=== PATIENT | female | born 1965 | race Caucasian/White ===

== ENCOUNTER → 2017-09-25 17:32 | Outpatient (CLI) | payer OTHER, SELFPAY | PROVIDERS: Family Provider Family Medicine Geriatric Medicine; PCP Family Medicine Geriatric Medicine; Visit Provider Family Medicine Geriatric Medicine | DX: R69 Illness, unspecified (principal) | CPT/HCPCS: 87633 ==

== ENCOUNTER → 2017-11-01 11:12 | Outpatient (CLI) | payer OTHER, SELFPAY ==
[2017-11-01 12:04] LABS: Absolute Lymphocyte Count 1.87 X10^3/ul (0.83-4.51); Absolute Neutrophil Count 3.8 X10^3/uL (2.0-7.7); Basophil# 0.04 X10^3/uL; Basophil% 0.6 % (0-1); Eosinophil# 0.19 X10^3/uL; Eosinophils% 2.9 % (0-5); Hematocrit 42.9 % (37-47); Hemoglobin 14.3 g/dl (12.0-15.0); Lymphocyte # 1.87 X10^3/ul (4.0); Lymphocyte % 28.7 % (19-41); Mean Corp Hgb Conc 33.3 g/gl (32-36); Mean Corpuscular Hgb 30.4 pg (27.0-32.0); Mean Corpuscular Volume 91.3 fL (81-99); Mean Platelet Vol. 9.6 fl (6.2-12.0); Monocyte# 0.57 X10^3/uL; Monocyte% 8.8 % (0-10); Neutrophil # 3.83 X10^3/uL (2.7-7.7); Neutrophil % 58.8 % (47-70); Platelet Count 297 K/mm3 (150-450); RBC Distribution Width CV 13.8 % (11.6-14.6); RBC Distribution Width SD 45.4 fl (35.1-43.9); White Blood Count 6.5 K/mm3 (4.4-11.0)
[2017-11-01 12:06] LABS: POSITIVE COUNT NO; POSITIVE DIFFERENTIAL NO; POSITIVE MORPHOLOGY NO
[2017-11-01 12:48] LABS: Anion Gap 5 (5-15); BUN 17 mg/dL (7-18); BUN/Creat Ratio 24.9 RATIO (10-20); Calcium,Total 9.4 mg/dL (8.5-10.1); Chloride 106 mmol/L (98-107); Creatinine, Serum 0.68 mg/dL (0.55-1.02); EST Glomerular Filtration Rate 95 mL/min (>60); Est Glom Filt Rate - Afr Amer 115 mL/min (>60); Glucose 80 mg/dL (74-106); Potassium 4.5 mmol/L (3.5-5.1); Sodium Level 140 mmol/L (136-145)
== END ==
PROVIDERS: Family Provider Family Medicine Geriatric Medicine; PCP Family Medicine Geriatric Medicine; Visit Provider Internal Medicine Cardiovascular Disease
DX: I10 Essential (primary) hypertension (principal); D69.2 Other nonthrombocytopenic purpura
CPT/HCPCS: 36415; 80048; 85025

== ENCOUNTER → 2017-11-11 14:17 | Outpatient (CLI) | payer OTHER, SELFPAY ==
--- NOTE | 2017-11-11 14:19 | CT_ITS ---
STUDY: CTA CHEST REASON FOR EXAM: Female, 52 years old. Thoracic aortic aneurysm RADIATION DOSAGE (If Supplied By Facility): CTDIvol = ( 14.99 ) mGy, DLP = ( 602.93 ) mGycm TECHNIQUE: The examination was performed with the intravenous administration of 100 ml of Isovue 300 contrast material. Post-processing of the angiographic images was performed, with multiplanar reformation and 3D reconstruction. Individualized dose optimization techniques were used for this CT. COMPARISON: None. FINDINGS: Normal enhancement of the main pulmonary artery and right and left pulmonary arteries. Normal enhancement of the bilateral peripheral pulmonary arteries. There is no demonstrated pulmonary embolism. A 4.9 cm aneurysm of the ascending thoracic aorta is noted without evidence of acute complication. Calcified aortic plaques are present. There is no demonstrated aortic dissection. Normal heart and pericardium. Normal mediastinum. Normal hilar regions. Normal visualized trachea and bronchi. An azygos lobe is incidentally noted. Mild emphysema. Normal pleura. Normal chest wall structures. There are degenerative changes of thoracic spine. Indeterminate 2.5 x 1.8 cm left adrenal nodule. Consider [address] or MRI follow-up. CT/Chest WITH Contrast IMPRESSION: A 4.9 cm aneurysm of the ascending thoracic aorta is noted without evidence of acute complication. No acute pulmonary findings. Indeterminate 2.5 x 1.8 cm left adrenal nodule. Consider [address] or MRI follow-up. Electronically Signed: Woo Biswas MD at 4:38 EDT Tel , Service support ,
== END ==
LOC: CT 14:18
PROVIDERS: Family Provider Family Medicine Geriatric Medicine; PCP Family Medicine Geriatric Medicine; Visit Provider Internal Medicine Cardiovascular Disease
DX: I77.810 Thoracic aortic ectasia (principal)
CPT/HCPCS: 71260; Q9967

== ENCOUNTER → 2018-03-27 16:17 | Outpatient (CLI) | payer OTHER, SELFPAY ==
[2018-03-27 17:27] LABS: Absolute Lymphocyte Count 1.88 X10^3/ul (0.83-4.51); Absolute Neutrophil Count 4.1 X10^3/uL (2.0-7.7); Basophil# 0.03 X10^3/uL; Basophil% 0.5 % (0-1); Eosinophil# 0.11 X10^3/uL; Eosinophils% 1.7 % (0-5); Hematocrit 41.1 % (37-47); Hemoglobin 13.6 g/dl (12.0-15.0); Lymphocyte # 1.88 X10^3/ul (4.0); Lymphocyte % 28.7 % (19-41); Mean Corp Hgb Conc 33.1 g/gl (32-36); Mean Corpuscular Hgb 30.1 pg (27.0-32.0); Mean Corpuscular Volume 90.9 fL (81-99); Mean Platelet Vol. 9.6 fl (6.2-12.0); Monocyte% 6.1 % (0-10); Neutrophil # 4.13 X10^3/uL (2.7-7.7); Platelet Count 317 K/mm3 (150-450); RBC Distribution Width CV 13.6 % (11.6-14.6); RBC Distribution Width SD 45.1 fl (35.1-43.9); Red Blood Count 4.52 M/mm3 (4.2-5.4); White Blood Count 6.6 K/mm3 (4.4-11.0)
[2018-03-27 17:51] LABS: ALB/GLOB Ratio 0.9 RATIO (0.9-2.4); AST(SGOT) 16 U/L (15-37); Alanine Aminotransfer ALT/SGPT 24 U/L (13-56); Albumin, Serum 3.4 g/dL (3.2-5.0); Alkaline Phosphatase 103 U/L (45-117); Anion Gap 12 (5-15); BUN 16 mg/dL (7-18); BUN/Creat Ratio 21.2 RATIO (10-20); Calcium,Total 8.6 mg/dL (8.5-10.1); Chloride 107 mmol/L (98-107); Creatinine, Serum 0.76 mg/dL (0.55-1.02); EST Glomerular Filtration Rate 85 mL/min (>60); Est Glom Filt Rate - Afr Amer 102 mL/min (>60); Globulin 3.8 g/dL (2.2-4.2); Glucose 151 mg/dL (74-106); Potassium 3.7 mmol/L (3.5-5.1); Protein, Total 7.2 g/dL (6.4-8.2); Sodium Level 144 mmol/L (136-145); Thyroid Stim Hormone (TSH) 0.91 uIU/mL (0.358-3.74)
[2018-03-27 18:13] LABS: POSITIVE COUNT NO; POSITIVE DIFFERENTIAL NO; POSITIVE MORPHOLOGY NO
[2018-03-28 08:33] LABS: Vitamin D,25 Hydroxy 22.2 ng/mL (29.95-100.01)
[2018-03-28 15:28] LABS: Hemoglobin A1c 5.8 % (4.2-6.3)
[2018-03-29 08:41] LABS: Hep C Antibodies 0.1 s/co ratio (0.0-0.9)
== END ==
PROVIDERS: Family Provider Family Medicine Geriatric Medicine; PCP Family Medicine Geriatric Medicine; Visit Provider Family Medicine Geriatric Medicine
DX: R53.83 Other fatigue (principal); E55.9 Vitamin D deficiency, unspecified; Z13.89 Encounter for screening for other disorder; M25.569 Pain in unspecified knee; E16.2 Hypoglycemia, unspecified
CPT/HCPCS: 36415; 73564; 80053; 82306; 83036; 84443; 85025; 86803

== ENCOUNTER 2018-05-15 14:00 | Outpatient (RCR) | payer OTHER, SELFPAY ==
--- NOTE | 2018-04-04 15:37 | HP.PTEVAL_ITS ---
Patient's Visit Information PRISCILLA MEADE is a 53 year old F referred to Physical Therapy by Doron Padgett with a diagnosis of OA OF THE LEFT KNEE. Date of Evaluation: 04/04/18 Physical Therapist: Nathalia Carbone - Visit Plan Frequency: 2-3x /Week Duration: 4-6 Weeks Plan: AQUATIC THERAPY FOR PAIN RELEIF, POSTURE CORRECTION/STRENGTHENING, INSTRUCTION IN APPROPRIATE BODY MECHANICS AND ACTIVITY MODIFICATIONS. DLS WITH A NEUTRAL SPINE TOLERATED. ANAHY LE ROM, STRETCHING AND STRENGTHENING. HEP INSTRUCTION. FOCUS ON LEFT KNEE. 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 Disability: NO. Present symptoms: THE WHOLE LEFT KNEE. PATIENT REPORTS NUMBNESS/TINGLING IN THE LEFT KNEE AND ALSO ABOVE AND BELOW A LITTLE BIT. INCREASED LBP LATELY. Present since : ABOUT 6 MONTHS. Pain Scale: WORST 6/10, LEAST 2/10. Currently: 2/10. Commenced as a result of: OA. Symptoms at onset: SAME. Worse: STEPS, WALKING, SLEEPING, CLUTCH, WALKING UP AND DOWN STEEP DRIVEWAYS, GETTING IN/OUT OF TRUCK AND PROLONGED STANDING. Better: IBUPROFEN, ARTHRITIS MEDICINE, WARM BATH, SITTING WITH LEG UP. Disturbed sleep: YES. Previous history/Previous treatment: OVER THE LAST 6 MONTHS SHE HAS HAD 2-[address] PADGETT AND RECEIVED A CORTISONE INJECTION THAT HELPED FOR ABOUT 2 MONTHS. NO PRIOR PT. NO LEFT KNEE SURGERY. NO SPECIALIST CONSULTS. Gait: PATIENT REPORTS SHE IS WALKING VERY SLOW AND LIMPING ON THE LLE. NO AD'S. NO FALLS. KNEE DOES GIVE OUT ON HER THOUGH AND IT IS GETTING WORSE. Accidents: NO. Unexplained weight loss: NO. Imaging: LEFT KNEE X-RAY DONE RECENTLY BUT PATIENT REPORTS SHE DOES NOT KNOW THE RESULTS. THIS PT ABLE TO FIND RESULTS IN EMR: FINDINGS: Normal visualized distal femur. Normal visualized proximal tibia and. fibula. Normal proximal tibiofibular articulation. Normal medial femorotibial compartment. Mild degenerative spurring at the. lateral femorotibial compartment. Normal patellofemoral articulation. Soft tissue structures are unremarkable. PMH: MITRAL VALVE PROLAPSE. OA IN HANDS AND HIPS. FOOT PROBLEMS - PODIATRY MALAIKA'T PENDING. 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 - Objective Other Observations: INDEP GAIT INTO PT WITHOUT ANY ASSISTIVE DEVICES WITH DECREASED CADANCE AND LIMPING ON RIGHT LE. HER LEFT KNEE HAS MODERATE SWELLING COMPARED TO RIGHT. ANAHY PES PLANTIS AND ANAHY GENU VALGUS LEFT > RIGHT. Motor deficit: RIGHT LE 5/5 WITH MMT. LEFT HIP FLEX 4/5, KNEE EXT 4-/5, KNEE FLEX 3- /5, ANKLE 5/5, EHL 5/5. Sensory deficit: ANAHY LE LIGHT TOUCH SENSATION IS INTACT AND SYMMETRICAL. ROM deficit: RIGHT KNEE ROM IN SUPINE WITH A HEEL SLIDE = FULL EXT TO 135 DEG, LEFT KNEE FULL EXT TO 110 DEG FLEX. Dural Signs: NEGATIVE ANAHY LE DURAL SIGNS. Lumbar mvmt loss: flex - NIL. ext - MOD. R SG - MIN. L SG - MIN. PATIENT DENIES INCREASED PAIN WITH LUMBAR ROM TESTING. Core strength: POOR. Palpation: TENDERNESS ALONG MEDIAL AND LATERAL LEFT KNEE JOINT LINES. NO ACUTE LUMBAR OR SACRAL TENDERNESS - Goals Goal 1:: DECREASE C/O LEFT KNEE PAIN. Goal Time Frame: 4-6 Weeks Goal 2:: IMPROVE FUNCTIONAL ROM OF LEFT KNEE. Goal Time Frame: 4-6 Weeks Goal 3:: IMPROVE FUNCTIONAL STRENGTH OF LEFT KNEE Goal Time Frame: 4-6 Weeks Goal 4:: IMPROVE STANDING, WALKING, WORK, SLEEP AND RECREATIONAL FUNCTION Goal Time Frame: 4-6 Weeks Goal 5:: INDEP HEP Goal Time Frame: 4-6 Weeks - Rehabilitation Potential Rehabilitation Potential: Fair - Anticipated Interventions Patient/Client Instruction: Educate patient on: Condition, Plan of Care, Risk Factors, Benefits of Fitness Program For the Purpose of:: To improve self management Therapeutic Exercise to Include: Strength training, Body mechanics, Postural training, Flexibilty training, In an aquatic setting, Passive ROM, Active ROM , Dynamic Lumbar Stabilization Comment: FOCUS ON LEFT KNEE. For the Purpose of:: To decrease pain, To decrease swelling/inflammation, To increase ROM, To improve muscle performance and motor function, To increase tolerance to activity/condition/position, To improve ability of physical actions for home/community/work/leisure, To improve gait and locomotor functions Thank you for the opportunity to evaluate your patient. For Medicare and Medicare HMO plans, please review the plan of care and approve it. It will need to be FAXED BACK to us at [phone] for Medicare purposes. Please let me know if there are questions or concerns regarding this plan of care. Physician Signature: Date:
--- NOTE | 2018-06-16 12:13 | HP.PT.NRP ---
HP - Discharge Summary (1) - Patient Information PRISCILLA MEADE was seen in my office for initial evaluation on 04/04/18. The following Plan of Care was established for this patient: Initial Frequency: 2-3x /Week Initial Duration: 4-6 Weeks - Anticipated Interventions Patient/Client Instruction: Educate patient on: Condition, Plan of Care, Risk Factors, Benefits of Fitness Program For the Purpose of:: To improve self management Therapeutic Exercise to Include: Strength training, Body mechanics, Postural training, Flexibilty training, In an aquatic setting, Passive ROM, Active ROM, Dynamic Lumbar Stabilization For the Purpose of:: To decrease pain, To decrease swelling/inflammation, To increase ROM, To improve muscle performance and motor function, To increase tolerance to activity/condition/position, To improve ability of physical actions for home/community/work/leisure, To improve gait and locomotor functions This patient was last seen in our office 05/15/18. Pertinent comments regarding their Physical therapy will appear below: This patient has not returned to Physical Therapy and is appropriate to return to MD for further follow-up as needed. At this point I will be discontinuing this patient from physical therapy. I would be happy to see this patient again in the future if found appropriate by the physician. Thank you! Nathalia Carbone
== END 2018-05-15 19:00 | disposition home or self-care (01) ==
LOC: PT 14:00
PROVIDERS: Family Provider Family Medicine Geriatric Medicine; PCP Family Medicine Geriatric Medicine; Visit Provider Family Medicine Geriatric Medicine
DX: M17.9 Osteoarthritis of knee, unspecified (principal)
CPT/HCPCS: 97110; 97113; 97162; 97530

== ENCOUNTER → 2019-01-08 17:15 | Outpatient (CLI) | payer OTHER, SELFPAY ==
[2018-11-06 09:49] VITALS: BMI 33.4
--- NOTE | 2019-01-08 17:21 | RAD_ITS ---
STUDY: X-RAY - PELVIS AND BILATERAL HIPS REASON FOR EXAM: Female, 54 years old. Pain TECHNIQUE: AP view of the pelvis.? 2 views of the right hip, and 2 views of the left hip were obtained. COMPARISON: None. FINDINGS: There is a non-specific bowel gas pattern. Normal visualized soft tissue structures. Normal bilateral iliac wings, sacroiliac joints and visualized sacrum. Normal bilateral superior and inferior pubic rami. Normal pubic symphysis. Normal bilateral ischial tuberosities. Normal visualized right femoral head. Normal right acetabulum. Normal right hip joint. Normal visualized left femoral head. Normal left acetabulum. Normal left hip joint. RAD/Hips B/L min 2 views w/ Pelvis IMPRESSION: Normal x-ray examination of the pelvis and bilateral hips. Electronically Signed: Ricky Craven DO at 18:37 EDT Tel [phone], Service support ,
--- NOTE | 2019-01-08 17:21 | RAD_ITS ---
STUDY: X-RAY - LUMBAR SPINE REASON FOR EXAM: Female, 54 years old. Pain TECHNIQUE: 3 view(s) of the lumbar spine were obtained. COMPARISON: None FINDINGS: Exaggerated lumbar lordosis. There is no substantial scoliosis. There is a grade 1 spondylolisthesis at L4-5. Normal vertebral bodies and endplates. Normal disc space heights. The soft tissue structures are unremarkable. RAD/Lumbar Spine 2 or 3 Views IMPRESSION: Grade 1 spondylolisthesis at L4-5.. Electronically Signed: Ricky Craven DO at 18:36 EDT Tel [phone], Service support ,
== END ==
LOC: RAD.FUTURE 17:19 → RAD 17:24
PROVIDERS: Family Provider Family Medicine Geriatric Medicine; PCP Family Medicine Geriatric Medicine; Referring Provider Family Medicine Geriatric Medicine; Visit Provider Family Medicine Geriatric Medicine
DX: M16.9 Osteoarthritis of hip, unspecified (principal); M54.5 Low back pain
CPT/HCPCS: 72100; 73521

== ENCOUNTER → 2019-12-21 | Outpatient (CLI) | payer OTHER, SELFPAY ==
[2019-11-05 10:30] VITALS: BMI 33.2
--- NOTE | 2019-12-21 12:52 | ECHOD_ITS ---
Reason For Study: DYSPNEA/SOB Procedure This was a 2D Doppler, Color Flow transthoracic echocardiogram. Exam performed in department. Left Ventricle Normal LV size. Left ventricular systolic function is normal. The estimated ejection fraction is 65 %. Stage 1 diastolic dysfunction. No regional wall motion abnormalities noted. Right Ventricle Normal RV size. Normal systolic function. Atria Normal left atrium. Normal right atrium. Tricuspid Valve Mild (1+) tricuspid valve insufficiency. Pulmonary artery systolic pressure is 29 mmHg. Aortic Valve Trisinus/trileaflet aortic valve. Moderate focal aortic valve calcification. Severe aortic stenosis. Peak aortic valve gradient 66 mmHg. Mean aortic valve gradient 41 mmHg. Calculated aortic valve area (continuity equation) is 0.8 cm2. Pulmonic Valve Normal pulmonic valve. Great Vessels Mild to moderately dilated aortic root. The pulmonary artery is normal size. Normal inferior vena cava. Pericardium/Pleural No pericardial effusion. MMode/2D Measurements & Calculations LVIDd: 4.9 cm IVSd: 0.98 cm LVOT diam: 2.0 cm LVIDs: 2.6 cm LVPWd: 1.1 cm LVOT area: 3.0 cm2 RVDd: 2.6 cm FS: 46.9 % Ao root diam: 4.5 cm LAV(MOD-bp): 37.3 ml LA A4 area: 12.8 cm2 LAV(MOD-bp) Indexed: 18.4 ml/m2 LAV(MOD-sp2): 37.2 ml LAV(MOD-sp4): 33.2 ml LA dimension(2D): 3.4 cm RA A4 area: 13.6 cm2 Time Measurements MV dec time: 0.25 sec Doppler Measurements & Calculations MV E max uli: 79.1 cm/sec Med Peak E' Uli: 4.7 cm/sec Ao V2 max: 407.7 cm/sec MV A max uli: 103.4 cm/sec E/E' med: 16.9 Ao max P.6 mmHg MV E/A: 0.77 Ao V2 mean: 308.2 cm/sec Ao mean P.0 mmHg Ao V2 VTI: 85.2 cm KARAN(I,D): 0.79 cm2 KARAN(V,D): 0.80 cm2 LV V1 max: 107.8 cm/sec SV(LVOT): 67.6 ml PA V2 max: 85.0 cm/sec LV V1 max P.6 mmHg LV V1 mean P.5 mmHg LV V1 mean: 75.3 cm/sec LV V1 VTI: 22.2 cm TR max uli: 255.4 cm/sec TR max P.1 mmHg Interpretation Summary Normal LV size. Left ventricular systolic function is normal. The estimated ejection fraction is 65 %. Stage 1 diastolic dysfunction. Mild to moderately dilated aortic root. Moderate focal aortic valve calcification. Severe aortic stenosis. Mean aortic valve gradient 41 mmHg. Calculated aortic valve area (continuity equation) is 0.8 cm2. Ordering Physician: Rajesh Rizvi Referring Physician: Doron Padgett Chi Performed By: Gricelda Spaulding RDCS, RVT
== END | disposition home or self-care (01) ==
LOC: CVS 12:52
PROVIDERS: PCP Family Medicine Geriatric Medicine; Referring Provider Internal Medicine Cardiovascular Disease; Visit Provider Internal Medicine Cardiovascular Disease
DX: R06.02 Shortness of breath (principal); Q23.1 Congenital insufficiency of aortic valve; R06.00 Dyspnea, unspecified
CPT/HCPCS: 93306

== ENCOUNTER 2020-01-01 06:55 | Day surgery (SDC) | payer OTHER, SELFPAY ==
[2019-11-05 10:30] VITALS: BMI 33.2
--- NOTE | 2019-12-28 08:44 | RAD_ITS ---
STUDY: X-RAY CHEST REASON FOR EXAM: Female, 54 years old. pre heart cath -- palpitations, hypertension -- aortic valve stenosis TECHNIQUE: Frontal and lateral views of the chest. COMPARISON: 11/11/2017 FINDINGS: The lungs are clear and expanded. There is no demonstrated pleural abnormality. Normal size heart. Normal mediastinum and nicola. Normal visualized pulmonary arteries. Normal visualized aortic arch and descending thoracic aorta. There is a levoscoliosis of the thoracic spine. There is degenerative osteoarthritis of the bilateral shoulders. There is no demonstrated abnormality of the visualized soft tissue structures of the upper abdomen. RAD/Chest PA and Lateral IMPRESSION: Degenerative changes, as described above. No demonstrated acute cardiopulmonary process. Electronically Signed: April Solomon, at 15:38 EDT Tel , Service support ,
--- NOTE | 2019-12-30 10:55 | PCM.HP.BLA ---
History and Physical Date of Admission: 01/01/20 Details: PRISCILLA MEADE, is a 54 F who presents to the skilled laborer today for a heart catheterization. She is a lady with a history of hypertension, hyperlipidemia, and palpitations. She says she only has occasional palpitations but she has not had any chest pain no shortness breath no paroxysmal nocturnal dyspnea or pedal edema she has had no presyncope or syncope. She tells me that she has had some palpitations recently and occasional dizziness. She has been compliant with her beta-ivelisse as well as her antidepressant. She has been compliant with all her medications. She does not know the etiology of the above. Intake Vital Signs: See EMR Intake Visit Reasons: [facility] Allergies No Known Allergies Allergy (Verified 11/05/19 10:36) Medications See EMR Ejection fraction %: 65 to 70 [facility] Medical History Bicuspid aortic valve (Chronic) Nonrheumatic aortic (valve) stenosis with insufficiency (Chronic) Dilated aortic root (Chronic) Essential (primary) hypertension (Chronic) Paroxysmal atrial tachycardia (Chronic) Hyperlipidemia (Chronic) Nicotine dependence (Chronic) Obesity (Chronic) Family History Mother Hypertension Father Hypertension Social History (Updated 11/05/19 @ 11:[address] Rajesh Rizvi MD) Smoking Status: Current every day smoker tobacco type: cigarettes ROS Const Const: Positive for other (continues to smoke 0.5 ppd); negative for fatigue, weakness, headache(s), frequent falls, difficulty sleeping or excessive sweating Eyes Eyes: Negative for loss of peripheral vision, transient loss of vision, blurry vision, double vision or tunnel vision ENT ENT: Negative for headache(s), dizziness, Nosebleed/epistaxis or balance problems Cardio Chest Pain: No Palpitations: Yes (Becomes lightheaded and SOB) feels like its: fast, skipping, thumping, pounding Edema: None Muscle aches with walking: None Resp Respiratory: Positive for SOB with activity. Negative for SOB at rest, SOB orthopnea\SOB lying down, Cough or paroxysmal nocturnal dyspnea GI GI: Negative nausea, vomiting, heartburn or black,tarry stools : Negative for hematuria Musc Musc: Negative for muscle aches/ myalgia, muscle weakness, joint pain or balance problems Skin Skin: Negative non-healing lesions, rash or unusual bruising Neuro Neuro: Negative for dizziness, lightheadedness, near syncope, syncope, orthostatic symptoms, frequent falls, headache(s), weakness, blurry vision, double vision or lack of coordination Jayme Hematologic/Lymphatic: Negative for easy bleeding or easy bruising Endo Endo: Negative for fatigue, excessive sweating or increased thirst/drinking Psych Psych: Negative for anxiety or depression Allergy Allergy/Immunology: Negative for hives, Negative for rash Cardiology Exam Const Appearance: cooperative, healthy appearing, no acute distress, well developed and well groomed Nutritional Appearance: average body habitus and well nourished Orientation: alert, awake and oriented x3 Head Head: normal to inspection, normocephalic and atraumatic Ears: hearing grossly normal bilaterally and external ears normal Nose: external nose normal, nares normal, nasal mucous membranes and turbinates normal, septum normal, no nasal discharge Face and Sinus: face symmetric Mouth: oral mucosae normal, tongue normal, oropharynx normal and moist mucous membranes Teeth and gingiva: dentition normal Throat: posterior oropharynx normal, tonsils normal and uvula midline Eyes General: appearance normal, both eyes and all related structures Eyelids: eyelids normal Conjunctivae: conjunctivae normal Pupils: PERRL, normal by confrontation and accommodation normal EOM: EOM intact bilaterally Neck Neck: normal visual inspection, trachea midline and no JVD JVD: +5 Carotids: normal carotid upstroke and bounding pulses Chest Chest inspection: normal inspection of the chest, symmetric chest movement and normal respiratory effort Auscultation: Bilateral: Clear to Auscultation Cardio Palpation: normal PMI Rate: regular rate Rhythm: regular rhythm Heart sounds: S1 normal, S2 normal and normal, physiologic split S2; negative rub, gallop or murmur Murmur: Grade 2/6, soft and early systolic GI GI: normal to inspection, soft, no hepatosplenomegaly and bowel sounds present Neuro General: alert, awake, oriented x3, gait normal, moves all extremities and no focal sensory deficit Skin Skin: no rashes or lesions noted Extremities Pulses: Normal: Right Femoral Pulse, Left Femoral Pulse, Right Dorsalis Pedis Pulse, Left Dorsalis Pedis Pulse, Right Posterior Tibial Pulse, Left Posterior Tibial Pulse, Right Radial Pulse, Left Radial Pulse Lower Extremity Edema: None: Bilateral Musculoskel Musculoskeletal: No joint tenderness Psych Psychological: normal affect Assessment & Plan 1. Shortness of breath R06.02 Plan Patient expressed shortness of breath at office appointment on 11/05/2019. She underwent an echocardiogram on 12/21/2019 that showed ejection fraction of 65%, stage I diastolic dysfunction, normal LV size, and severe aortic stenosis with a peak aortic valve gradient of 66 mmHg, a mean aortic valve gradient of 41 mmHg, and a calculated aortic valve area of 0.8 cm?. She will proceed with left heart catheterization to further assess coronary artery anatomy to guide valve treatment. Based on results, further recommendation will be made. 2. Bicuspid aortic valve Q23.1 Plan Patient proceeded with echocardiogram on 12/21/2019 with results noted above. She will proceed with heart catheterization to further guide treatment. 3. Essential (primary) hypertension I10 Plan Her blood pressure has been under good control on the current medical therapy. She will continue current medical therapy. Thank you for allowing us to participate in the patients plan of care, if you have any questions please do not hesitate to call. This note was generated using a voice recognition system and there may be incorrect words, spelling or punctuation that were not noted when reviewing the office note prior to saving.
[2019-12-30 15:00] LABS: Hematocrit 40.8 % (37-47); Hemoglobin 13.7 g/dL (12.0-15.0); Mean Corp Hgb Conc 33.6 g/dL (32-36); Mean Corpuscular Hgb 30.2 pg (27.0-32.0); Mean Corpuscular Volume 89.9 fL (81-99); RBC Distribution Width CV 13.2 % (11.6-14.6); RBC Distribution Width SD 43.1 fl (35.1-43.9); Red Blood Count 4.54 M/mm3 (4.2-5.4); White Blood Count 6.8 K/mm3 (4.4-11.0)
[2019-12-30 15:01] LABS: Basophil% 0.9 % (0-1); Eosinophils% 2.4 % (0-5); Lymphocyte % 25.3 % (19-41); Mean Platelet Vol. 9.2 fl (6.2-12.0); Monocyte% 7.4 % (0-10); Neutrophil % 63.7 % (47-70); Platelet Count 267 K/mm3 (150-450)
[2019-12-30 15:02] LABS: Absolute Lymphocyte Count 1.71 X10^3/uL (0.83-4.51); Absolute Neutrophil Count 4.3 X10^3/uL (2.0-7.7); Basophil# 0.06 X10^3/uL; Eosinophil# 0.16 X10^3/uL; Lymphocyte # 1.71 X10^3/ul (4.0); Neutrophil # 4.32 X10^3/uL (2.7-7.7)
[2019-12-30 15:03] LABS: NRBC Flagged by Analyzer 0 % (0-5)
[2019-12-30 15:04] LABS: Anion Gap 6 (5-15); BUN 18 mg/dL (7-18); BUN/Creat Ratio 24.7 RATIO (10-20); Chloride 107 mmol/L (98-107); Creatinine, Serum 0.73 mg/dL (0.55-1.02); EST Glomerular Filtration Rate 88 mL/min (>60); Est Glom Filt Rate - Afr Amer 107 mL/min (>60); Glucose 114 mg/dL (74-106); Potassium 4.2 mmol/L (3.5-5.1); Sodium Level 140 mmol/L (136-145)
[2019-12-31 14:43] VITALS: BMI 33.2
--- NOTE | 2020-01-01 09:02 | CL.D_ITS ---
Patient Name: PRISCILLA MEADE Study Date: 01/01/2020 Performing: Rajesh Rizvi MD Ht: 66.14 inches 168 cm : 1965 Wt: 205.03 lbs 93 kg Age: 54 Gender: female BSA: 2.02 PROCEDURE(S) PERFORMED [id number]/COR DC11-AO ROOT ANGIO WITH HEART CATH CLINICAL PROFILE AND INDICATIONS Indications: Other Heart Failure: None Stress/Imaging Stress/Image Study Performed: No CAD Presentations: No Sxs, no angina. CONCLUSIONS Normal coronary arteries Aortic Root dilated Aortic Valve Stenosis- Severe Bicuspid aortic valve with severe stenosis RECOMMENDATIONS Surgery consult for Valve Replacement surgery DESCRIPTION OF PROCEDURE The patient arrived to the procedure lab. The risks and benefits of the procedure as well as a full d escription of our services here and current unavailability of surgical backup were fully explained to the patient and/or their significant other prior to the catheterization. The Timeout was completed, verifying the correct patient and procedure. The patient's procedural site was prepped and draped in the usual fashion. Local anesthetic was given subcutaneously to right radial region with Lidocaine 2% . Using a modified Seldinger technique, arterial access was obtained via the right radial artery, a 6 Fr sheath was inserted. Left Coronary Artery selective angiography was performed in multiple views u sing a 5 Fr. 4.0 Hunters catheter. Right Coronary Artery selective angiography was then performed in mu ltiple views using a 5 Fr. JR 5 catheter. Ascending (root) aorta selective angiography was then perfo rmed in single view. Ascending (root) aorta selective angiography was then performed in single view. CORONARY ANGIOGRAPHY DOMINANCE: Right Dominant LEFT HEART ASSESSMENT Left Ventricular Ejection Fraction: by Echo 65 % Normal LV wall motion LEFT MAIN: Angiographically normal LEFT ANTERIOR DESCENDING ARTERY: Angiographically normal CIRCUMFLEX ARTERY: Angiographically normal RIGHT CORONARY ARTERY: Angiographically normal VALVE FINDINGS: Bicuspid Aortic Valve Aortic Valve Stenosis - severe AORTIC ROOT: Dilated COMPLICATIONS No Complications PROCEDURE MEDICATIONS Versed 1 mg IV Fentanyl 50 mcg IV Oxygen: 2 L/min via nasal cannula Heparin diluted in 23cc Heparinized saline. Patient given 10cc IA of this solution. 01/01/2020 08:33: 16 Verapamil 2.5mg, Ntg 100mcgs, 2000 units of Heparin diluted in 23cc Heparinized saline. Patient give n 10cc IA of this solution. 01/01/2020 08:33:16 SUMMARY OF HEMODYNAMIC DATA Time AIR REST ECG 07:26:05 AO 112/76 (93) SA 08:35:30 AO 107/ (91) 08:50:06 Signed By Rajesh Rizvi MD On 01/01/2020 09:01:41 Rajesh Rizvi MD
== END 2020-01-01 11:00 | disposition home or self-care (01) ==
LOC: CLSP 06:56
PROVIDERS: PCP Family Medicine Geriatric Medicine; Referring Provider Internal Medicine Cardiovascular Disease; Visit Provider Internal Medicine Cardiovascular Disease
DX: R06.02 Shortness of breath (principal); Q23.1 Congenital insufficiency of aortic valve; I10 Essential (primary) hypertension; R00.2 Palpitations; E78.5 Hyperlipidemia, unspecified; Q23.0 Congenital stenosis of aortic valve; E66.9 Obesity, unspecified; F17.210 Nicotine dependence, cigarettes, uncomplicated
CPT/HCPCS: 36415; 71046; 80048; 85025; 93005; 93454; 93567; 99152; 99153; J7040; C1769; C1894; Q9967

== ENCOUNTER → 2020-03-25 | Outpatient (CLI) | payer OTHER, SELFPAY ==
[2020-03-25 10:49] VITALS: BMI 33.4
[2020-03-25 12:56] LABS: Absolute Lymphocyte Count 1.95 X10^3/uL (0.83-4.51); Absolute Neutrophil Count 3.4 X10^3/uL (2.0-7.7); Basophil# 0.05 X10^3/uL; Basophil% 0.8 % (0-1); Eosinophil# 0.17 X10^3/uL; Eosinophils% 2.7 % (0-5); Hematocrit 42.9 % (37-47); Hemoglobin 13.6 g/dL (12.0-15.0); Lymphocyte # 1.95 X10^3/ul (4.0); Lymphocyte % 31.5 % (19-41); Mean Corp Hgb Conc 31.7 g/dL (32-36); Mean Corpuscular Hgb 28.8 pg (27.0-32.0); Mean Corpuscular Volume 90.9 fL (81-99); Mean Platelet Vol. 9.4 fl (6.2-12.0); Monocyte# 0.59 X10^3/uL; Monocyte% 9.5 % (0-10); NRBC Flagged by Analyzer 0 % (0-5); Neutrophil # 3.44 X10^3/uL (2.7-7.7); Neutrophil % 55.5 % (47-70); Platelet Count 364 K/mm3 (150-450); RBC Distribution Width CV 13.2 % (11.6-14.6); RBC Distribution Width SD 44.4 fl (35.1-43.9); Red Blood Count 4.72 M/mm3 (4.2-5.4); White Blood Count 6.2 K/mm3 (4.4-11.0)
[2020-03-25 13:21] LABS: Anion Gap 7 (5-15); BUN 17 mg/dL (7-18); BUN/Creat Ratio 24.9 RATIO (10-20); Calcium,Total 9.3 mg/dL (8.5-10.1); Chloride 101 mmol/L (98-107); Creatinine, Serum 0.68 mg/dL (0.55-1.02); EST Glomerular Filtration Rate 94 mL/min (>60); Est Glom Filt Rate - Afr Amer 114 mL/min (>60); Glucose 97 mg/dL (74-106); Potassium 4.2 mmol/L (3.5-5.1); Sodium Level 138 mmol/L (136-145); Thyroid Stim Hormone (TSH) 0.74 uIU/mL (0.358-3.74)
== END | disposition home or self-care (01) ==
LOC: LAB 11:31
PROVIDERS: PCP Family Medicine Geriatric Medicine; Referring Provider Internal Medicine Cardiovascular Disease; Visit Provider Internal Medicine Cardiovascular Disease
DX: Q23.0 Congenital stenosis of aortic valve (principal); Q23.1 Congenital insufficiency of aortic valve; Z95.4 Presence of other heart-valve replacement; Z98.890 Other specified postprocedural states; Z79.899 Other long term (current) drug therapy
CPT/HCPCS: 36415; 80048; 84443; 85025

== ENCOUNTER → 2020-04-04 | Outpatient (CLI) | payer OTHER, SELFPAY ==
[2020-03-25 10:49] VITALS: BMI 33.4
--- NOTE | 2020-04-04 12:55 | CR.HP_ITS ---
CR - History & Physical - General Arrival date:: 04/04/20 Arrival time:: 12:56 Date of Referral:: 03/25/20 Date of CR Evaluation:: 04/04/20 Referring Physician: Dr. Rizvi Primary Diagnosis: Z95.4 Presence of other heart valve replacement - History of Present Cardiac Event Onset Date: Enter Onset Date of cardiac illnesses in Comment field below Current stable Angina Pectoris:: No Acute Myocardial Infarction within 12 months:: No Coronary Artery Bypass Graft:: No Heart valve replacement or repair:: Yes - 02/09/2020 PTCA or coronary stenting:: No Heart or Heart-Lung Transplant:: No Heart Failure EF <35%:: No - Medications Home Medications: Ambulatory Orders Medication Instructions Recorded venlafaxine 75 mg capsule,extended 75 mg PO QDAY 11/01/17 release 24 hr aspirin 81 mg tablet,delayed 81 mg PO DAILY 03/25/20 release magnesium oxide 400 mg PO BID 03/25/20 metoprolol succinate 100 mg 100 mg PO BID tab 03/25/20 tablet,extended release 24 hr multivitamin 1 tab PO DAILY 03/25/20 - Allergies Allergies/Adverse Reactions: Allergies No Known Allergies Allergy (Verified 03/25/20 10:51) - Sleep Disorder Evaluation Hx of Sleep Apnea: No Do you snore loudly (louder than talking or can be heard through closed doors)?: Yes Do you often feel tired/ fatigued/ sleepy during daytime?: Yes Has anyone observed you stop breathing during sleep?: No History of Hypertension (for STOP score): Yes - Pt declines sleep study STOP Results: Positive Advanced Directives - Advanced Directives Power of Laboratory Apparatus Glass Blower: Yes Living Will: Yes Advance Directives Information Provided: No Advance Directives on File: No DNR Order?:: No Past Medical History - Covid-19 Screening Fever: No Unexplained muscle aches: No Current respiratory symptoms: No Upper respiratory infections symptoms: No Gastro-intestinal symptoms: No Iyy-[id number]-[id number] symptoms: No Has tested positive for COVID-19 in last 30 days: No Had contact w/person w/symptoms or Covid-19 (+) last 14 days: No Has High Risk Exposures ID'd by Health dept/Inf Control team: No 65 years or older:: No Lives in Assisted Living facility:: No Has a chronic lung disease or moderate to severe asthma:: No Has a serious heart condition:: Yes Immunocompromised:: No Severely obese (Body Mass Index of 40 or higher):: Yes Diabetic:: No Has chronic kidney disease undergoing dialysis:: No Has liver disease:: No - Past Medical Illness Medical History: Past Medical History (Last Reviewed 03/25/20 @ 11:[address] Rajesh Rizvi MD) Aortic stenosis with bicuspid valve (Chronic) Q23.0, Q23.1 Thoracic aortic aneurysm (TAA) (Chronic) I71.2 Mid Ascending Aorta 4.7 cm/ aortoplasty of ascending aorta 02/09/2020 Paroxysmal atrial tachycardia (Chronic) I47.1 Essential (primary) hypertension (Chronic) I10 Hyperlipidemia (Chronic) E78.5 Dilated aortic root I77.810 Obesity E66.9 Intermittent palpitations (Resolved) R00.2 Nicotine dependence F17.200 Shortness of breath (Resolved) R06.02 Bicuspid aortic valve (Ruled-out) Q23.1 - Past Surgical History Surgical History: Past Surgical History (Last Reviewed 03/25/20 @ 11:[address] Rajesh Rizvi MD) History of ascending aorta repair (Chronic) Onset Date: 02/09/20 Z98.890 aortoplasty of ascending aorta 02/09/2020 History of aortic valve replacement with tissue graft (Suspected) Onset Date: 02/09/20 Z95.4 #21 Inspiris AVR w/ ascending aorta aortoplasty History of left heart catheterization Z98.890 - Family History Summary Family History: Family History (Last Reviewed 03/25/20 @ 11:[address] Rajesh Rizvi MD) Mother Hypertension Father Hypertension Social History - Smoking History Smoking Status: Former smoker Years Smokin Packs Smoked per Day: 1 Hx Smoking Cessation Date: 02/09/20 Hx Tobacco Use: Yes - Alcohol Use Alcohol Usage: No - Substance Abuse Hx Substance Use: No - Occupation Occupation (List type of work in comments):: Employed Hours worked per day:: 5 - not back to work yet - Hobbies, Recreation, Social Activities Hobbies: None Social Environment - Status Marital Status: Single - Current Living Arrangements Living Environment:: Family - Children How many children do you have?: 2 Do any of your children live nearby?: Yes - Safety Do you feel safe in your surroundings?: Yes - Assistance Do you need any assistance at home?: none Review of Systems - Review of Systems Hints: Right click = Denies ([place]ash). Left click = Reports ([place]) Review of Present Symptoms: Reports: Shortness of Breath with Exertion, Operative Discomfort, Wound Healing, Fatigue, Heart Arrhythmia/Irregularities, Appetite - Normal. Denies: Shortness of Breath at Rest, PVD, Angina, Dizziness/Lightheadedness, Appetite - Special Diet, Sleep - Normal, Sexual Changes - Pain Is Patient Pain Free?: No Pain Location: chest Pain Level: 10/19 Risk Factor Assessment - Vital Signs Pulse Ox: 97 - Pulse Pulse Rate: 72 Pulse Rhythm: Regular - Hypertension Blood Pressure Sitting - Left Arm: 112/70 - Stress Stress: Long-standing, Work-related, Home/Family - Obesity Height: 5 ft 6 in Weight:: 93.894 kg Weight in Pounds: 207.0 lbs Body Mass Index (BMI): 33.4 Nutritional Referral for Obesity: No - Physical Inactivity Physical Inactivity: None - Risk Stratification Risk Guidelines: Moderate Risk: Risk Factor for Smoking, Risk Factor for Dysl ipidemia, Risk Factor for Diabetes, Risk Factor for Obesity, Risk Factor for Hypertension, Risk Factor for Sedentary Lifestyle, Risk Factor for Depression - For Smoking Smoking Risk Guidelines: Smoking Low Risk: None or quit greater than 6 months ago. Smoking Moderate Risk: Smoker or quit 6 months or less ago. Smoking High Risk: Smoker - For Dyslipidemia Dyslipidemia Risk Guidelines: Low Risk: Moderate Risk: High Risk: 15-25% fat 25.1-29% fat >/= 30% fat. <7% sat fat 7-9% sat fat >9% sat fat. <150 mg chol 150-299 mg chol >/= 300 mg chol. LDL <100 LDL 100-129 LDL >/= 130. Chol/HDL ratio <5.0 Chol/HDL ratio 5.0-6.0 Chol/HDL ratio >6.0. Triglycerides <100 Triglycerides 100-149 Triglycerides >/= 150 - For Diabetes Mellitus Diabetes Risk Guidelines: Diabetes Low Risk: HgA1c <6.5% and/or FBG <120. Diabetes Moderate Risk: HgA1c 6.6-7.9% and/or FBG 120-180. Diabetes High Risk: HgA1c >/= 8% and/or FBG >180 - For Obesity/Overweight Obesity/Overweight Risk Guidelines: Obesity Low Risk: BMI <25.0. Obesity Moderate Risk: BMI 25-29.9. Obesity High Risk: BMI >/= 30.0 - For Hypertension Hypertension Risk Guidelines: Hypertension Low Risk: Systolic <120 and Diastolic <80. Hypertension Moderate Risk: Systolic 120-139 and Diastolic 80-89. Hypertension High Risk: Systolic >/= 140 and Diastolic >/= 90 - For Sedentary Lifestyle Sedentary Lifestyle Risk Guidelines: Sedentary Lifestyle Low Risk: >/= 1,500 kcal/week. Sedentary Lifestyle Moderate Risk: 700-1,499 kcal/week. Sedentary Lifestyle High Risk: < 700 kcal/week - For Depression Depression Risk Guidelines: Depression Low Risk: Not clinically depressed. Depression Moderate Risk: Mildly depressed. Depression High Risk: Clinically depressed - Family History Family History: Family History (Last Reviewed 03/25/20 @ 11:[address] Rajesh Rizvi MD) Mother Hypertension Father Hypertension Motivation - Motivation to Participate On a scale of 1 to 10, how prepared are you to commit to attending program?: 1 What do you see as barriers to successfully being able to complete the program?: work What do you see as the benefits of succesfully completing the program? In other words, what do you hope to get out of participating in the program?: improved health Are there issues you are dealing with that will interfere with completing the program?: none Do you have a spouse or signficant other, family or friends who will help support you to complete the program?: no
--- NOTE | 2020-04-04 12:55 | CR.ITP_ITS ---
Diagnosis - General Information Admitting Diagnosis: Z95.4 Presence of other heart valve replacement. Personal Learning Style:: Audio/Visual Barriers to Learning: No Barriers Gave educational material for:: Treating Heart Disease, Emotions & Heart Disease, Stress Management & Relaxation, Sleep Disorders & Heart Disease, How The Heart Works, What it means to have Heart Disease, How Coronary Artery Disease is Diagnosed, Heart Procedures, What Heart Medications Do, Risk Factors & Modifications, Living an Active Life, Nutrition - Education/Goals Cardiac Rehabilitation Goals: 1. Maintain the individual as the primary focus of care. 2. To improve the patient's quality of life. 3. Identification of cardiac risk factors and provide cardiac risk factor management. 4. Enhance the psychosocial status of the patient. 5. Reconditioning enough to allow the patient to resume customary activities. 6. Control symptoms of cardiac disease Personal Goals: Initial Assessment: Get back to work, or to resume activities faster, Improve muscle strength and endurance, Improve diet and eating habits (eat healthier), Control risk factors (learn risk factor modification) Scale for measuring improvement of personal goals: Enter appropriate number in Comments. 2 = Unchanged. 3 = Slightly Better. 4 = Moderate Improvement. 5 = Met my Goal - Diagnosis & Disease Process Outcomes/Goals: Pt IDs own risk factors & lifestyle modifications by Session 10 Plan/Interventions: Assist Pt to ID & engage in lifestyle modification to reduce CVD risk, Instruct on individual risk factors, Review symptoms of angina & emergency actions, Review secondary diagnosis & identify educational needs., Other see comment 30 day Reassessments:: Not Met 30 day Reassessments:: Not Met 30 day Reassessments:: Not Met 30 day Reassessments:: Not Met Final Reassessments:: Not Met - Safety Referral to Physical Therapy: No Referral to [facility] Case Management: No Fall Risk Assessed:: Yes Assistive Devices:: None Exercise - Initial Assessment - Visit Date of Eval: 04/04/20 - initial eval Mets: Pre-: >7 METS for 30 minutes by discharge - Physician Prescribed Exercise Modalities: Treadmill, Biodyne, Airdyne, NuStep, SciFit Frequency: 3x/week for 12 weeks [36 sessions] Intensity: 60-80% of age predicted maximum heart rate reserve Current METSs:: 3.0 Target Heart Rate:: 105-138 Resting Blood Pressure: 112/70 - Outcomes & Goals Goals:: Verbalizes understanding of THR, RPE & goal METS by session 6, Documents in home exercise log/reports 30 min aerobic 5 day/wk by DC, Demonstrates accurate pulse taking by DC, Other additional outcome/goals: see below - Intervention & Plan Exercise Program Goals: Instruct on personal THR & RPE, Instruct on MET level & personal MET goal, Show patient to take own pulse /validate performance until accurate, Instruct on home exercise, Other additional plan/int - Physical Activity Home Exercise Physical Activity - Home Exercise: Safe Exercise, Warm-up, Self-monitoring, Cool-Down, Home Exercise > 30 min Daily, Sitting Time <3 hours/daily - Outcomes & Goals Outcomes/Goals: Demonstrates correct Warm-up/exercise Cool-Down (S3) if = 2.5 METs, Verbalizes symptoms of exercise intolerance by Session 3 (S3), Demonstrate safe equipment use (S3) & follows exercise prescrition (6), Other: See below - Intervention & Plan Plan/Intervention: Instruct warm-up & cool-down if exercising at > 2 METs, Instruct on symptoms of exercise intolerance & actions to take, Instruct & monitor on saf, Assess intial functional capacity & safety risk, Other See below Nutrition - Initial Assessment - Program Goals Nutrition Program Goals: LDL <100 optimal. 100 - 129 Near optimal. 130 - 159 Borderline High. 160 - 189 High. Total Cholesterol <200 desirable. 200 - 239 Borderline High. >/= 240 High. HDL < 40 Low >/=60 High. Triglycerides <150 desirable. <199 optimal. VlDL 5 - 40. HgbA1C <7%. BMI <25 Patient has diagnosis of Hyperlipidemia (ICD E78)?: Yes - Visit Date of Assessment:: 04/04/20 - initial eval - Cholesterol/Lipids Determine presence & major risk factors that modify LDL goal: Cigarette smoking, Hypertension or hypertensive medication, Low HDL cholesterol <40 mg/dL*, Family history of premature CHD in Male < 55 years: female <65 yearsFa, Age men > 45 years; women >/= 55 years Outcomes/Goals: Pt IDs own risk factors & lifestyle modifications by Session 10, Verbalizes symptoms of angina & response by session 3., Pt independently manages, Other Additional Outcomes/Goals: Intervention/Plan: Advocate for lipid panel cholesterol medication if applicable, Instruct on personal lipid levels & lipid goals/NCEP guidelines, Instruct on cholesterol, Other additional plan/int Referral to dietitian:: No - pt declines - Diabetes (Other Core Measures) Diabetes Type: Not Applicable - Weight Mgt (Other Care) Height: 5 ft 6 in Weight:: 93.894 kg BMI: 33.4 Diagnosis Overweight/Obesity BMI> 30% ICD-10 E66: Yes Diagnosis High BMI/Morbid Obesity BMI> 35% ICD-10 Z68: No Outcomes/Goals: Pt sets, maintains & shows weight loss goal & trend during rehab, Other additional outcomes/goals Intervention/Plan: Instruct on ideal BMI & set weight loss goal w/patient, Assist pt to ID & incorporate diet changes for weight loss by S9, Refer to Structured Weight Loss program as appropriate, Encourage goal of using 250- 300dcal per session for weight loss, Other additional plan/interventions - Healthy Eating Habits Will attend diet classes:: Yes Outcomes/Goals:: Consume diet rich in vegs,fruits,whole grain/high fiber,fish,lean meat, Limit sat/trans fats,cholesterol & added salts & sugars, Other additional outcome/goals: Intervention/Plan:: Assess current eating habits, Other Additional plan/interventions - Education Gave educational materials for:: Signs & symptoms of hypoglycemia, Signs & symptoms of hyperglycemia, Relate diabetes to coronary artery disease, Healthy eating Medical - Initial Assessment - Visit Date of Eval: 04/04/20 - initial eval - Medication Compliance Preventative Medication(s):: Aspirin, Beta ivelisse H/O mental health issues: depression, anxiety, or addiction?: Yes Doesn?t believe in the benefits of treatment?: No Believes medications are unnecessary or harmful?: No Has a concern about medication side effects?: No Expresses concern over the cost of medications?: No Outcomes/Goals: Verbalizes medications,desired effect & common side effects @ DC, Pt self-reports following medication regimen, Keeps card in wallet w/medications listed by DC, Other additional outcome/goals: Interventions/plans: Instruct on medication effects & side effects, Review medication list w/patient every two weeks, Instruct importance of taking meds as ordered & assist problem solving, Other additional - Tobacco Use Tobacco Use: Non-smoker How long ago did you quit using tobacco products?: Less than 6 months ago Years Smokin Do you use smokeless tobacco?: No Outcomes/Goals: Smoking cessation achieved or maintained by discharge, Identify aids/strategies for achieving smoking cessation by session 6, Other additional outcome/goals Interventions/plan: Instruct on effects of smoking & provide smoking cessation resource, Assist pt to set quit date & provide encouragement, Assist pt to develop strategies to achieve/maintain quit date, Assist pt w/nicotine replacement & medication for cessation success, Other additional plan/interve ntions - Hypertension Hypertension Diagnosis:: Hypertension ICD-10 I10 Resting Blood Pressure:: 112/70 [place] [employer] Hypertension Guidelines: [place] [employer] Hypertension Guidelines. Normal BP Less than 120/80. Elevated BP 120/80. Hypertension Stage 1: BP 130-139/80-89. Hypertesnion Stage 2: BP 140 or higher/90 or higher. Hypertension Crisis: BP higher than 180/120 Outcomes/Goals: Able to verbalize/achieve optimal blood pressure <130/80, Incorporates diet changes & exercise for blood pressure control by DC, Other additional outcomes/goals Interventions/plan: Instruct on optimal blood pressure, hypertension & medications, Instruct on effects of sodium, alcohol, stress, exercise &hypertension, Other additional plan/interventions - Tobacco Cessation Referral Smoking Cessation Referral:: No Individual Education/Counseling:: No Education Schedule Given:: Yes Psychosocial - Initial Assess - VIsit Date of Eval: 04/04/20 - initial eval History of previous Mental disease:: Yes - Pt is medicated and declines counseling History of Emotional Disorders: Depression Self-reported stressors: Family, Medical/Health - Target Goals Target Goals: Assess presence or absence of depression. Using a valid screening tool, maximizes coping skills. Positive support system - Psychosocial Test Tool Used:: [employer] QOL Cardiac, PHQ-9 Questionnaire phq-9 Severity: Severity. 1-4 Minimal Depression. 5-9 Mild Depression. 10-14 Moderate Depression. 15-19 Moderately Sever Depression. 20-27 Severe D epression. Rule: Total Score:: 10 - Referral to Behavioral Health PS - Interventions: Yes Attend Stress Management Classes, No Referral to Behavioral Health if PHQ-9 score >9:, No Referral to [facility], No Referral to Physician if PHQ-9 if score is 5-9: - Outcomes/Goals: See list Psychosocial Outcomes/Goals:: ID's personal stressors & 2 strategies to manage stress by discharge, Other Additional outcome/goals: - Intervention/Plan: See List Interventions/Plan:: Assess stressors,coping strategies & signs of derpression on admission, Instruct/assist pt to develop coping & personal stress Mgt strategies, Refer to Behavioral Health if appropriate, Refer to Physician if appropriate, Instruct patient to recognize signs & symptoms of depression, Instruct patient to recog, Other additional plan/intervention Patient Health Questionnaire Initial Assessment 1. Little interest or pleasure in doing things: Several days 2. Feeling down, depressed, or hopeless: Several days 3. Trouble falling or staying asleep, or sleeping too much: Several days 4. Feeling tired or having little energy: Several days 5. Poor appetite or overeating: Nearly every day 6. Feeling bad about yourself -- or that you are a failure or have let yourself or your family down: More than half the days 7. Trouble concentrating on things, such as reading the newspaper or watching television: Several days 8. Moving or speaking so slowly that other people could have noticed. Or the opposite - being so fidgety or restless that you have been moving around a lot more than usual: Not at all 9. Thoughts that you would be better off , or of hurting yourself in some way: Not at all How difficult have these problems made it for you to do your work, take care of things at home, or get along with other people?: Somewhat difficult Total Score: 10 DALILA-Q SV Test - Statements CAD is a disease of the arteries in the heart: False Examples of risk factors for heart disease: True Angina is chest pain or discomfort: True The benefits of resistance training include: True Eating more meat and dairy products: False Anti-platelet medications such as aspirin are important: False The only effective way to manage stress: True An exercise warm-up slowly increases heart rate: True Prepared, processed foods usually have high sodium: True Depression is common after a heart attack: True The statin medications lower cholesterol: True To control blood pressure, lower the amount of sodium: True If someone gets chest discomfort during walking: False Transfats are partially hydrogenated vegetable oils: True Sleep apnea that is not treated increases the risk: False To control cholesterol, one should become a vegetarian: False Someone knows if he/she is exercising at the right level: I Don't Know Diabetes cannot be prevented with exercise & health eating: False Stress is a large risk for heart attack: True A diet that can help lower blood pressure is rich in: True - Total Score Total Correct Responses: 17 Self-Efficacy Initial Assessment We would like to know how confident you are in doing certain activities. Please select your confidence level for:: Select your confidence level for the following using the scale 1-10 where 1 is not at all confident and 10 is totally confident. Your score is the average of all 6 responses. Fatigue: How confident are you that you can keep the fatigue caused by your disease from interfering with the things you want to do? Select Number: 3 Physical Discomfort or Pain: How confident are you that you can keep the physical discomfort or pain of your disease from interfering with the things you want to do? Select Number: 3 Emotional Distress: How confident are you that you can keep the emotional distress caused by your disease from interfering with the things you want to do? Select Number: 3 Other Symptoms or Health Problems: How confident are you that you can keep other symptoms or health problems from interfering with the things you want to do? Select Number: 5 Different Tasks and Activities: How confident are you that you can do the different tasks and activities needed to manage your health condition so as to reduce your need to see a doctor? Select Number: 1 Medication: How confident are you that you can do things other than just taking medication to reduce how much your illness affects your everyday life? Select Number: 4 Total Score:: 3 Nutrition Survey - Nutrition Survey Instructions Scoring Instructions: Scoring is as follows: Yes = 1 points. No = 0 point. Patient score that is >/=12 is considered to be at potential nutritional risk and could benefit from a referral to a registered dietitian. - Nutrition Survey Initial Have you lost >10 lbs over the past 2 months without trying?: No Are you following a special diet at home for diabetes, low fat, or low salt?: No Are you interested in meeting with a dietitian for help understanding your diet?: No Do you eat less than 3 meals a day?: No Do you eat fatty meats (mabry, sausage, ribs, etc), fried foods, desserts, large amounts of salad dressings, margarine, butter, or cheese most days?: Yes Do you have food allergies? [Enter types in comment field]: No Do you eat in restaurants more than 3 times a week?: No Do you season food with salt, seasoning salt, or garlic salt?: No Do you used canned, boxed, frozen meals, or soups, seasoning packets?: Yes Total Score:: 2
[2020-04-04 13:54] VITALS: BP 112/70; PULSE 72; O2SAT 97; BMI 33.4
== END | disposition home or self-care (01) ==
LOC: CR 12:44
PROVIDERS: PCP Family Medicine Geriatric Medicine; Referring Provider Internal Medicine Cardiovascular Disease; Visit Provider Internal Medicine Cardiovascular Disease
DX: Z95.4 Presence of other heart-valve replacement (principal)

== ENCOUNTER 2020-04-11 14:15 | Outpatient (RCR) | payer OTHER, SELFPAY ==
[2020-04-04 13:39] VITALS: BMI 33.4
== END 2020-04-11 23:59 ==
LOC: CR 14:15
PROVIDERS: PCP Family Medicine Geriatric Medicine; Referring Provider Internal Medicine Cardiovascular Disease; Visit Provider Internal Medicine Cardiovascular Disease
DX: I71.2 Thoracic aortic aneurysm, without rupture (principal); Q23.0 Congenital stenosis of aortic valve; Q23.1 Congenital insufficiency of aortic valve; I47.1 Supraventricular tachycardia; I10 Essential (primary) hypertension; E78.5 Hyperlipidemia, unspecified; F17.200 Nicotine dependence, unspecified, uncomplicated; Z95.4 Presence of other heart-valve replacement; Z98.890 Other specified postprocedural states
CPT/HCPCS: 93798

== ENCOUNTER 2020-05-04 14:15 | Outpatient (RCR) | payer OTHER, SELFPAY ==
[2020-04-04 13:54] VITALS: BMI 33.4
--- NOTE | 2020-05-04 07:18 | CR.ITP_ITS ---
Exercise - 30-day Assessment - Visit Date of Eval: 05/04/20 Session #:: 10 - Physician Prescribed Exercise Modalities: Treadmill, Airdyne, NuStep Frequency: 3x/week for 12 weeks [36 sessions] Intensity: 60-80% of age predicted maximum heart rate reserve Current METSs:: 4.0 increase from 3.0 Target Heart Rate:: 105-138 Target RPE 12-16:: Current RPE:: 11-15 Maximum Excercise HR:: 107 Resting Blood Pressure: 100/60 - controlled on medication Maximum Exercise Blood Pressure: 142/76 EKG Type: NSR to sinus tach with rare PVC - Outcomes & Goals Goals:: Verbalizes understanding of THR, RPE & goal METS by session 6, Documents in home exercise log/reports 30 min aerobic 5 day/wk by DC, Demonstrates accurate pulse taking by DC - Intervention & Plan Exercise Program Goals: Instruct on personal THR & RPE, Instruct on MET level & personal MET goal, Show patient to take own pulse /validate performance until accurate, Instruct on home exercise - 30-day Reassessments 30 day Reassessments:: Progressing - Physical Activity Home Exercise Physical Activity - Home Exercise: Safe Exercise, Warm-up, Self-monitoring, Cool-Down, Home Exercise > 30 min Daily, Sitting Time <3 hours/daily - Outcomes & Goals Outcomes/Goals: Demonstrates correct Warm-up/exercise Cool-Down (S3) if = 2.5 METs, Verbalizes symptoms of exercise intolerance by Session 3 (S3), Demonstrate safe equipment use (S3) & follows exercise prescrition (6) - Intervention & Plan Plan/Intervention: Instruct warm-up & cool-down if exercising at > 2 METs, Instruct on symptoms of exercise intolerance & actions to take, Instruct & monitor on saf, Assess intial functional capacity & safety risk - 30-day Reassessments 30 day Reassessments:: Progressing Nutrition - 30-Day Assessment - Program Goals Nutrition Program Goals: LDL <100 optimal. 100 - 129 Near optimal. 130 - 159 Borderline High. 160 - 189 High. Total Cholesterol <200 desirable. 200 - 239 Borderline High. >/= 240 High. HDL < 40 Low >/=60 High. Triglycerides <150 desirable. <199 optimal. VlDL 5 - 40. HgbA1C <7%. BMI <25 Patient has diagnosis of Hyperlipidemia (ICD E78)?: Yes - Visit Date of Assessment:: 05/04/20 Session #:: 10 - no recent labs - Cholesterol/Lipids Determine presence & major risk factors that modify LDL goal: Hypertension or hypertensive medication, Age men > 45 years; women >/= 55 years Outcomes/Goals: Pt IDs own risk factors & lifestyle modifications by Session 10, Verbalizes symptoms of angina & response by session 3., Pt independently manages Intervention/Plan: Instruct on personal lipid levels & lipid goals/NCEP guidelines, Instruct on cholesterol Referral to dietitian:: Yes 30-day Reassessments:: Progressing - Diabetes (Other Core Measures) Diabetes Type: Not Applicable - Weight Mgt (Other Care) Not Applicable: No Height: 5 ft 6 in Weight:: 210 lb BMI: 33.9 Diagnosis Overweight/Obesity BMI> 30% ICD-10 E66: Yes Diagnosis High BMI/Morbid Obesity BMI> 35% ICD-10 Z68: No Outcomes/Goals: Pt sets, maintains & shows weight loss goal & trend during rehab Intervention/Plan: Instruct on ideal BMI & set weight loss goal w/patient, Assist pt to ID & incorporate diet changes for weight loss by S9, Refer to Structured Weight Loss program as appropriate, Encourage goal of using 250- 300dcal per session for weight loss 30 day Reassessments:: Progressing - Healthy Eating Habits Will attend diet classes:: Yes Outcomes/Goals:: Consume diet rich in vegs,fruits,whole grain/high fiber,fish,lean meat, Limit sat/trans fats,cholesterol & added salts & sugars Intervention/Plan:: Assess current eating habits 30-day Reassessments:: Progressing - Education Gave educational materials for:: Healthy eating Medical- 30-Day Assessment - Visit Date of Eval: 05/04/20 Session #:: 10 - Medication Compliance Preventative Medication(s):: Aspirin, Statin/lipid, Beta ivelisse H/O mental health issues: depression, anxiety, or addiction?: No Doesn?t believe in the benefits of treatment?: No Believes medications are unnecessary or harmful?: No Has a concern about medication side effects?: No Expresses concern over the cost of medications?: No Outcomes/Goals: Verbalizes medications,desired effect & common side effects @ DC, Pt self-reports following medication regimen Interventions/plans: Instruct on medication effects & side effects, Review med ication list w/patient every two weeks, Instruct importance of taking meds as ordered & assist problem solving 30-day Reassessments:: Progressing - Tobacco Use Tobacco Use: Non-smoker - Hypertension Hypertension Diagnosis:: Hypertension ICD-10 I10 Resting Blood Pressure:: 100/60 - controlled [place] [employer] Hypertension Guidelines: [place] [employer] Hypertension Guidelines. Normal BP Less than 120/80. Elevated BP 120/80. Hypertension Stage 1: BP 130-139/80-89. Hypertesnion Stage 2: BP 140 or higher/90 or higher. Hypertension Crisis: BP higher than 180/120 Peak Exercise Blood Pressure:: 142/76 Outcomes/Goals: Able to verbalize/achieve optimal blood pressure <130/80, Incorporates diet changes & exercise for blood pressure control by DC Interventions/plan: Instruct on optimal blood pressure, hypertension & medications, Instruct on effects of sodium, alcohol, stress, exercise &hypertension 30 day Reassessments:: Progressing - Tobacco Cessation Referral Smoking Cessation Referral:: No Individual Education/Counseling:: No Education Schedule Given:: Yes Psychosocial - 30-Day Assess - VIsit Date of Eval: 05/04/20 Session #:: 10 - Target Goals Target Goals: Assess presence or absence of depression. Using a valid screening tool, maximizes coping skills. Positive support system - Psychosocial Test Tool Used:: PHQ-9 Questionnaire phq-9 Severity: Severity. 1-4 Minimal Depression. 5-9 Mild Depression. 10-14 Moderate Depression. 15-19 Moderately Sever Depression. 20-27 Severe Depression. Rule: See PHQ-9 Score: 9 - Refer to PCP for evaluation depression - Referral to Behavioral Health PS - Interventions: Yes Attend Stress Management Classes, No Referral to Behavioral Health if PHQ-9 score >9:, No Referral to [facility], No Referral to Physician if PHQ-9 if score is 5-9: - Outcomes/Goals: See list Psychosocial Outcomes/Goals:: ID's personal stressors & 2 strategies to manage stress by discharge - Intervention/Plan: See List Interventions/Plan:: Assess stressors,coping strategies & signs of derpression on admission, Instruct/assist pt to develop coping & personal stress Mgt strategies, Instruct patient to recognize signs & symptoms of depression, Instruct patient to recog - 30-day Reassessments: 30 day Reassessments:: Progressing Patient Health Questionnaire 30-Day Re-eval Assessment 1. Little interest or pleasure in doing things: Several days 2. Feeling down, depressed, or hopeless: Several days 3. Trouble falling or staying asleep, or sleeping too much: Several days 4. Feeling tired or having little energy: Several days 5. Poor appetite or overeating: Nearly every day 6. Feeling bad about yourself -- or that you are a failure or have let yourself or your family down: More than half the days 7. Trouble concentrating on things, such as reading the newspaper or watching television: Several days 8. Moving or speaking so slowly that other people could have noticed. Or the opposite - being so fidgety or restless that you have been moving around a lot more than usual: Not at all 9. Thoughts that you would be better off , or of hurting yourself in some way: Not at all How difficult have these problems made it for you to do your work, take care of things at home, or get along with other people?: Somewhat difficult Total Score: 10 Self-Efficacy 30-Day Re-eval Assessment We would like to know how confident you are in doing certain activities. Please select your confidence level for:: Select your confidence level for the following using the scale 1-10 where 1 is not at all confident and 10 is totally confident. Your score is the average of all 6 responses. Fatigue: How confident are you that you can keep the fatigue caused by your disease from interfering with the things you want to do? Select Number: 4 Physical Discomfort or Pain: How confident are you that you can keep the physical discomfort or pain of your disease from interfering with the things you want to do? Select Number: 4 Emotional Distress: How confident are you that you can keep the emotional distress caused by your disease from interfering with the things you want to do? Select Number: 4 Other Symptoms or Health Problems: How confident are you that you can keep other symptoms or health problems from interfering with the things you want to do? Select Number: 6 Different Tasks and Activities: How confident are you that you can do the different tasks and activities needed to manage your health condition so as to reduce your need to see a doctor? Select Number: 3 Medication: How confident are you that you can do things other than just taking medication to reduce how much your illness affects your everyday life? Select Number: 5 Total Score:: 4
[2020-05-04 07:25] VITALS: BP 100/60; BP 142/76; BMI 33.9
== END 2020-05-11 23:59 ==
LOC: CR 14:15
PROVIDERS: PCP Family Medicine Geriatric Medicine; Referring Provider Internal Medicine Cardiovascular Disease; Visit Provider Internal Medicine Cardiovascular Disease
DX: I71.2 Thoracic aortic aneurysm, without rupture (principal); Q23.0 Congenital stenosis of aortic valve; Q23.1 Congenital insufficiency of aortic valve; Z98.890 Other specified postprocedural states; Z95.4 Presence of other heart-valve replacement; I47.1 Supraventricular tachycardia; I10 Essential (primary) hypertension; E78.5 Hyperlipidemia, unspecified; F17.200 Nicotine dependence, unspecified, uncomplicated
CPT/HCPCS: 93798

== ENCOUNTER 2020-05-13 06:26 | Outpatient (RCR) | payer OTHER, SELFPAY ==
[2020-04-04 13:54] VITALS: BMI 33.4
[2020-05-12 00:40] VITALS: BP 100/60; BP 142/76
== END 2020-06-11 23:59 ==
LOC: CR 06:26
PROVIDERS: PCP Family Medicine Geriatric Medicine; Referring Provider Internal Medicine Cardiovascular Disease; Visit Provider Internal Medicine Cardiovascular Disease
DX: I71.2 Thoracic aortic aneurysm, without rupture (principal); Q23.0 Congenital stenosis of aortic valve; Q23.1 Congenital insufficiency of aortic valve; Z98.890 Other specified postprocedural states; Z95.4 Presence of other heart-valve replacement; I47.1 Supraventricular tachycardia; I10 Essential (primary) hypertension; E78.5 Hyperlipidemia, unspecified; F17.200 Nicotine dependence, unspecified, uncomplicated
CPT/HCPCS: 93798

== ENCOUNTER → 2021-03-13 10:06 | Outpatient (CLI) | payer OTHER, SELFPAY ==
[2021-03-13 09:26] VITALS: BMI 33.4
[2021-03-13 11:39] LABS: Absolute Lymphocyte Count 1.88 X10^3/uL (0.83-4.51); Absolute Neutrophil Count 2.6 X10^3/uL (2.0-7.7); Basophil# 0.04 X10^3/uL; Basophil% 0.7 % (0-1); Eosinophils% 3.7 % (0-5); Hematocrit 43.7 % (37-47); Hemoglobin 14.1 g/dL (12.0-15.0); Lymphocyte # 1.88 X10^3/ul (0.83-4.51); Lymphocyte % 34.8 % (19-41); Mean Corp Hgb Conc 32.3 g/dL (32-36); Mean Corpuscular Hgb 28.8 pg (27.0-32.0); Mean Corpuscular Volume 89.4 fL (81-99); Mean Platelet Vol. 9.9 fl (6.2-12.0); Monocyte# 0.67 X10^3/uL; Monocyte% 12.4 % (0-10); NRBC Flagged by Analyzer 0 % (0-5); Neutrophil # 2.61 X10^3/uL (2.7-7.7); Neutrophil % 48.2 % (47-70); Platelet Count 336 K/mm3 (150-450); RBC Distribution Width CV 12.3 % (11.6-14.6); RBC Distribution Width SD 40.5 fl (35.1-43.9); Red Blood Count 4.89 M/mm3 (4.2-5.4); White Blood Count 5.4 K/mm3 (4.4-11.0)
[2021-03-13 12:10] LABS: BNP,B-Type NATRIURETIC PEPTIDE 46.6 pg/mL (0-100)
[2021-03-13 12:39] LABS: Anion Gap 5 (5-15); BUN 15 mg/dL (7-18); BUN/Creat Ratio 24.1 RATIO (10-20); Calcium,Total 9.2 mg/dL (8.5-10.1); Chloride 104 mmol/L (98-107); Creatinine, Serum 0.62 mg/dL (0.55-1.02); EST Glomerular Filtration Rate 104 mL/min (>60); Est Glom Filt Rate - Afr Amer 126 mL/min (>60); Free T3 4.9 pg/mL (2.18-3.98); Glucose 112 mg/dL (74-106); Potassium 4.3 mmol/L (3.5-5.1); Sodium Level 138 mmol/L (136-145); T4 Free Direct 1.23 ng/dL (0.76-1.46); Thyroid Stim Hormone (TSH) < 0.01 uIU/mL (0.358-3.74)
== END ==
PROVIDERS: PCP Nurse Practitioner Family; Referring Provider Physician Assistant Medical; Visit Provider Physician Assistant Medical
DX: E78.5 Hyperlipidemia, unspecified (principal); I10 Essential (primary) hypertension; R06.00 Dyspnea, unspecified; Z95.4 Presence of other heart-valve replacement; Z98.890 Other specified postprocedural states
CPT/HCPCS: 36415; 80048; 83880; 84439; 84443; 84481; 85025

== ENCOUNTER → 2021-04-26 12:42 | Outpatient (CLI) | payer OTHER, SELFPAY ==
[2021-03-13 09:26] VITALS: BMI 33.4
--- NOTE | 2021-04-26 12:44 | ECHOD_ITS ---
Reason For Study: Dyspnea/SOB Procedure This was a 2D Doppler, Color Flow transthoracic echocardiogram. The study was technically difficult. Contrast injection was performed. Exam performed in department. Left Ventricle Normal LV size. Moderate concentric left ventricular hypertrophy. Left ventricular systolic function is normal. The estimated ejection fraction is 65 %. Stage 1 diastolic dysfunction. No regional wall motion abnormalities noted. Right Ventricle Normal RV size. Normal systolic function. Atria Normal left atrium. Normal right atrium. Mitral Valve Normal mitral valve. Tricuspid Valve Normal tricuspid valve. Aortic Valve Mean aortic valve gradient 11 mmHg. Bioprosthetic aortic valve. Pulmonic Valve Normal pulmonic valve. Great Vessels Mild to moderately dilated aortic root. The pulmonary artery is normal size. Normal inferior vena cava. Pericardium/Pleural No pericardial effusion. Medication 22 gauge I.V. with prn adaptor inserted into right arm. Diluted definity 2ml given slow IV push to enhance endocardial definition. MMode/2D Measurements & Calculations LVIDd: 4.4 cm IVSd: 1.4 cm LVOT diam: 2.0 cm LVIDs: 2.0 cm LVPWd: 1.2 cm FS: 53.2 % LVOT area: 3.0 cm2 Ao root diam: 4.0 cm LAV(MOD-sp2): 48.9 ml Time Measurements MV dec time: 0.25 sec Doppler Measurements & Calculations MV E max uli: 96.4 cm/sec Lat Peak E' Uli: 7.8 cm/sec Med Peak E' Uli: 5.7 cm/sec MV A max uli: 127.7 cm/sec E/E' lat: 12.3 E/E' med: 17.0 MV E/A: 0.75 MV V2 max: 114.7 cm/sec MV P1/2t max uli: 101.8 cm/sec Ao V2 max: 244.3 cm/sec MV max P.3 mmHg MV P1/2t: 101.2 msec Ao max P.9 mmHg MV V2 mean: 64.4 cm/sec Ao V2 mean: 154.7 cm/sec MV mean P.9 mmHg MV dec slope: 294.6 cm/sec2 Ao mean P.3 mmHg MV V2 VTI: 33.8 cm MVA(P1/2t): 2.2 cm2 Ao V2 VTI: 50.2 cm MVA(VTI): 2.5 cm2 KARAN(I,D): 1.7 cm2 KARAN(V,D): 1.6 cm2 LV V1 max: 127.6 cm/sec SV(LVOT): 83.1 ml PA V2 max: 98.9 cm/sec LV V1 max P.5 mmHg LV V1 mean P.4 mmHg LV V1 mean: 84.8 cm/sec LV V1 VTI: 27.7 cm TR max uli: 222.9 cm/sec TR max P.9 mmHg ECHO/Echo Complete W/ Contrast Interpretation Summary Normal LV size. Moderate concentric left ventricular hypertrophy. Left ventricular systolic function is normal. The estimated ejection fraction is 65 %. Stage 1 diastolic dysfunction. Bioprosthetic aortic valve. Mean aortic valve gradient 11 mmHg. Compared to the previous the aortic valve has been replaced Contrast injection was performed. Ordering Physician: Yanna Suarez Referring Physician: Kiarra Deal NP-[facility] Performed By: Jase Haro RCS
== END ==
LOC: CVS 12:43
PROVIDERS: PCP Nurse Practitioner Family; Referring Provider Physician Assistant Medical; Visit Provider Physician Assistant Medical
DX: R06.02 Shortness of breath (principal); R06.00 Dyspnea, unspecified; Z98.890 Other specified postprocedural states
CPT/HCPCS: 93306; Q9957; A4216; C8929; J3490

== ENCOUNTER → 2021-06-02 13:47 | Outpatient (CLI) | payer OTHER, SELFPAY ==
[2021-06-02 15:45] LABS: Free T3 2.3 pg/mL (2.18-3.98); T4 Free Direct 0.66 ng/dL (0.76-1.46); Thyroid Stim Hormone (TSH) 5.54 uIU/mL (0.358-3.74)
[2021-06-04 13:33] LABS: Thyroid Peroxidase AB > 600 IU/mL (0-34)
== END ==
PROVIDERS: PCP Nurse Practitioner Family; Referring Provider Internal Medicine Endocrinology, Diabetes & Metabolism; Visit Provider Internal Medicine Endocrinology, Diabetes & Metabolism
DX: E05.90 Thyrotoxicosis, unspecified without thyrotoxic crisis or storm (principal)
CPT/HCPCS: 36415; 84439; 84443; 84481; 86376